=== PATIENT | male | born 1965 | race Caucasian/White ===

== ENCOUNTER 2020-03-21 10:01 | Day surgery (SDC) | payer BC ==
[2020-03-17 14:27] VITALS: BMI 29.4
[~2020-03-21 10:01] MED LIST: LACTATED RINGERS 1,000 ML IV SCH
[2020-03-21 10:32] VITALS: RESP 16; TEMP 98.1
[2020-03-21] MEDS ORDERED: LIDOCAINE 1% (10MG/ML) FOR IV START INTRADERMA ONE (10:46)
[2020-03-21] MEDS ORDERED: MIDAZOLAM 2 MG/2 ML VIAL ONE (11:21)
[2020-03-21] MEDS ORDERED: fentaNYL (PF) 50 MCG/ML 2 ML AMP ONE (11:21)
[2020-03-21] MEDS ORDERED: GLYCOPYRROLATE 0.2 MG/ML 2 ML VIAL ONE (11:21)
[2020-03-21] MEDS ORDERED: PROPOFOL 10 MG/ML 20 ML VIAL IV ONE (11:21)
--- NOTE | 2020-03-21 11:54 | P.PCN ---
Date of Procedure: 03/21/20 Description of Procedure: BRIEF HISTORY: Patient is a 54-year-old male presenting for evaluation colonoscopy for screening for malignant neoplasm of the colon. No prior colonoscopy. No change in bowel habits or blood per rectum. No family history of colon cancer. PROCEDURE PERFORMED: Colonoscopy with polypectomy. PREOPERATIVE DIAGNOSIS: Screening for malignant neoplasm of the colon, no prior colonoscopy. ESTIMATED BLOOD LOSS: Minimal. IV sedation per Anesthesia. PROCEDURE: After informed consent was obtained, the patient, was brought into the endoscopy unit. IV sedation was administered by Anesthesia under continuous monitoring. Digital rectal examination was normal. Initially the Olympus CF-190 flexible video colonoscope was then inserted in the rectum, gradually advanced into the cecum without any difficulty. Careful examination was performed as the scope was gradually being withdrawn. Ileocecal valve and the appendiceal orifice were visualized and appeared normal. Prep was excellent. Mucosa of the cecum, ascending colon, transverse colon, descending colon, sigmoid colon, and rectum appeared normal, with a few scattered diverticula noted in the sigmoid colon. A sessile 4 mm ascending colon polyp was removed cold snare polypectomy. Retroflexion was performed in the rectum and no lesions were seen. The patient tolerated the procedure well. IMPRESSION: Sessile ascending colon polyp removed with cold snare polypectomy. Mild sigmoid diverticulosis. RECOMMENDATIONS: Findings of this examination were discussed with the patient and his family. Okay to resume diet. Okay to resume medications. Await pathology from polypectomy. Recommend repeat colonoscopy in 7 years pending pathology from polypectomy.
[2020-03-21 12:09] VITALS: BP 106/64; PULSE 66
== END 2020-03-21 12:44 | disposition home or self-care (01) ==
LOC: ORWHC2ENDO 10:01
PROVIDERS: ATTEND Internal Medicine
DX: Z12.11 Encounter for screening for malignant neoplasm of colon (principal); K63.5 Polyp of colon; K57.30 Diverticulosis of large intestine without perforation or abscess without bleeding; G47.33 Obstructive sleep apnea (adult) (pediatric); Z90.89 Acquired absence of other organs; Z98.890 Other specified postprocedural states
CPT/HCPCS: 88305; 45385; J2250; J3010; J2704

== ENCOUNTER → 2021-01-18 | Outpatient (CLI) | payer BC ==
--- NOTE | 2021-01-18 22:01 | CONS ---
CONSULTATION DATE OF SERVICE: 01/18/2021 55-year-old gentleman has been evaluated in Sleep Center for possible obstructive sleep apnea-hypopnea syndrome. HISTORY OF PRESENT ILLNESS/SLEEP-WAKE EVALUATION: SLEEP SCHEDULE: Patient usual sleep schedule from 10 p.m. to 6 or 6:30 a.m. on weekdays and until 8 a.m. on weekends. FALLING ASLEEP: No problems with falling asleep, although has TV set in bedroom. DURING SLEEP: He usually sleeps on the side position. According to his , he snores and has episodes of gasping for air. The patient wakes up from sleep 2 times usually without nocturia. No history of hypnagogic hallucinations, sleep paralysis or cataplexy. DURING THE DAY/SLEEP WAKE EVALUATION: In the morning the patient wakes up tired, may feel sleepy during the day. [place] Sleepiness Scale is 7. PAST MEDICAL HISTORY: Positive history of motion sickness. Actinic keratosis. PAST SURGICAL HISTORY: Colonoscopy in February of 2020. Normal results according to patient. Past surgical history of nasal septum deviation repair, tonsillectomy and adenoidectomy. MEDICATIONS: Vitamin E. FAMILY HISTORY: Positive for snoring by his brother. REVIEW OF SYSTEMS: Snoring, awakenings from sleep. PHYSICAL EXAMINATION: GENERAL: gentleman without distress. BP 137/76, HR 67, RR 14, height 5 feet 8- 1/2 inches, weight 200.8 pounds, body mass index 29.9, temperature 97.0, Oxygen saturation at room air 97%. Oropharynx extremely low position of soft palate, Mallampati 4. Neck is 16-3/4 inches in circumference. NECK: Supple, no JVD. Thyroid is not palpable. LUNGS: Clear to percussion and to auscultation. Good air exchange. No wheezing or rhonchi. HEART: S1, S2 regular. No murmurs, gallops, or rubs. ABDOMEN: Soft and nontender. Bowel sounds are present. No organomegaly appreciated. EXTREMITIES: No clubbing or cyanosis. JEWELRY DRILL OPERATOR: Awake, alert, and oriented X3. Cranial nerves 2 to 7 intact. There is no fasciculation or atrophy. noted. No focal deficits observed. IMPRESSION: 1. Snoring, awakenings from sleep, extremely low position of soft palate, Mallampati 4, possible obstructive sleep apnea-hypopnea syndrome. 2. Overweight borderline to obesity, body mass index 29.9. 3. History of motion sickness. PLAN: 1. Home sleep apnea test for evaluation of patient breathing during sleep. 2. If sleep study will be negative and patient will have continued to have symptoms of excessive daytime sleepiness, we may consider to do multiple sleep latency test. Thank you very much for referring this patient for consultation. Sincerely, Luis Douglas MD, PhD, FAASM Diplomat of [employer] Sleep Medicine Board of [place] [employer] Diagnostic Assistant of [facility] [place] MMODL / IJN: [id number] /
== END ==
LOC: SLEEP 16:20
PROVIDERS: ATTEND Internal Medicine
DX: G47.8 Other sleep disorders (principal); R06.83 Snoring; E66.3 Overweight; Z68.29 Body mass index [BMI] 29.0-29.9, adult; Z87.898 Personal history of other specified conditions
CPT/HCPCS: 99211

== ENCOUNTER 2021-07-23 09:41 | Emergency (ER) | payer BC ==
[2021-07-23] MEDS ORDERED: SODIUM CHLORIDE 0.9% 1,000 ML IV STA (10:53)
[2021-07-23] MEDS ORDERED: HYDROmorphone 0.5 MG/0.5 ML SYRINGE IVP STA (10:53)
[2021-07-23] MEDS ORDERED: KETOROLAC 15 MG/ML 1 ML VIAL IVP STA (10:53)
[2021-07-23] MEDS ORDERED: ONDANSETRON 4 MG/2 ML VIAL IVP STA (10:53)
[2021-07-23] MEDS ORDERED: SODIUM CHLORIDE 0.9% 500 ML 500 ML IV STA (10:53)
[2021-07-23 10:55] LABS: Appearance,Urine Cloudy (Clear); Bilirubin,Urine Negative (Negative); Blood,Urine Moderate (Negative); Color,Urine Yellow; Glucose,Urine (UA) Negative (Negative); Hyaline Casts,Urine 1 /lpf (0-2); Ketones,Urine 1+ (Negative); Leukocyte Esterase,Urine Trace (Negative); Mucus,Urine Moderate /hpf; Nitrite,Urine Negative (Negative); Protein,Urine 1+ (Negative); RBC,Urine 82 /hpf (0-5); Specific Gravity,Urine 1.039 (1.001-1.035); Squamous Epithelial Cell,Urine <1 /hpf (0-4); WBC,Urine 2 /hpf (0-5)
--- NOTE | 2021-07-23 11:02 | ED ---
General Adult HPI - General Chief complaint: Back Pain/Injury Stated complaint: Back Pain/Nausea/Diarrhea Time Seen by Provider: 07/23/21 10:46 Source: patient, RN notes reviewed Mode of arrival: ambulatory Limitations: no limitations - History of Present Illness Initial comments: This a 55-year-old male presents emergency Department with chief complaint left flank pain. Patient states the pain started this morning. Patient states nothing makes the pain feel better or worse at this time. Patient states that she's had increased nausea vomiting associated with. Patient denies any history kidney stones. Patient states that he has adysuria or noted hematuria but has urinary stricture. Patient had mild diarrhea patient's had no sick contacts. Patient offers no complaints. - Related Data Home Medications Medication Instructions Recorded Confirmed Cholecalciferol [Vitamin D3 (25 25 mcg PO DAILY 03/17/20 03/21/20 Mcg = 1000 Iu)] [place]-3 Fatty Acids/Fish Oil [Fish 1 each PO DAILY 03/17/20 03/21/20 Oil 1,000 mg Softgel] Vitamin E 400 unit PO DAILY 03/17/20 03/21/20 Previous Rx's Medication Instructions Recorded Ondansetron Odt [Zofran Odt] 4 mg PO Q8HR PRN #10 tab 07/23/21 Allergies Allergy/AdvReac Type Severity Reaction Status Date / Time No Known Allergies Allergy Verified 07/23/21 10:01 Review of Systems ROS Statement: Those systems with pertinent positive or pertinent negative responses have been documented in the HPI. ROS Other: All systems not noted in ROS Statement are negative. Past Medical History Past Medical History: No Reported History History of Any Multi-Drug Resistant Organisms: None Reported Additional Past Surgical History / Comment(s): deviated septum repair Past Anesthesia/Blood Transfusion Reactions: Postoperative Nausea & Vomiting (PONV) Smoking Status: Never smoker General Exam Limitations: no limitations General appearance: alert, in no apparent distress Head exam: Present: atraumatic, normocephalic, normal inspection Eye exam: Present: normal appearance, PERRL, EOMI. Absent: scleral icterus, conjunctival injection, periorbital swelling ENT exam: Present: normal exam, mucous membranes moist Neck exam: Present: normal inspection, full ROM. Absent: tenderness, meningismus, lymphadenopathy Respiratory exam: Present: normal lung sounds bilaterally. Absent: respiratory distress, wheezes, rales, rhonchi, stridor Cardiovascular Exam: Present: normal rhythm, tachycardia, normal heart sounds. Absent: systolic murmur, diastolic murmur, rubs, gallop, clicks Back exam: Present: CVA tenderness (L). Absent: CVA tenderness (R) Neurological exam: Present: alert, oriented X3 Skin exam: Present: warm, dry, intact, normal color. Absent: rash Course Vital Signs 07/23/21 07/23/21 09:57 11:42 Temperature 98.2 F 97.5 F L Pulse Rate 43 L 50 L Respiratory 18 12 Rate Blood Pressure 115/75 126/70 O2 Sat by Pulse 97 99 Oximetry Medical Decision Making - Medical Decision Making upon review of the CT shows evidence of stone, calcification in the bladder. Patient does have hematuria symptoms are consistent with kidney stone. Patient's pain is improved, resolved. Patient discharged in stable condition return parameters discussed. - Lab Data Result diagrams: 07/23/21 11:03 07/23/21 11:03 Lab Results 07/23/21 07/23/21 07/23/21 Range/Units 10:42 11:03 11:03 WBC 8.4 (3.8-10.6) k/uL RBC 5.50 (4.30-5.90) m/uL Hgb 15.7 (13.0-17.5) gm/dL Hct 50.8 (39.0-53.0) % MCV 92.4 (80.0-100.0) fL MCH 28.5 (25.0-35.0) pg MCHC 30.8 L (31.0-37.0) g/dL RDW 12.1 (11.5-15.5) % Plt Count 211 (150-450) k/uL MPV 8.4 Neutrophils % 80 % Lymphocytes % 11 % Monocytes % 5 % Eosinophils % 2 % Basophils % 1 % Neutrophils # 6.7 (1.3-7.7) k/uL Lymphocytes # 1.0 (1.0-4.8) k/uL Monocytes # 0.4 (0-1.0) k/uL Eosinophils # 0.2 (0-0.7) k/uL Basophils # 0.1 (0-0.2) k/uL Sodium 139 (137-145) mmol/L Potassium 4.5 (3.5-5.1) mmol/L Chloride 103 (98-107) mmol/L Carbon Dioxide 28 (22-30) mmol/L Anion Gap 8 mmol/L BUN 22 H (9-20) mg/dL Creatinine 1.31 H (0.66-1.25) mg/dL Est GFR (CKD-EPI)AfAm 71 (>60 ml/min/1.73 sqM) Est GFR (CKD-EPI)NonAf 62 (>60 ml/min/1.73 sqM) Glucose 143 H (74-99) mg/dL Calcium 9.3 (8.4-10.2) mg/dL Total Bilirubin 0.6 (0.2-1.3) mg/dL AST 24 (17-59) U/L ALT 26 (4-49) U/L Alkaline Phosphatase 49 (38-126) U/L Total Protein 7.1 (6.3-8.2) g/dL Albumin 4.6 (3.5-5.0) g/dL Amylase 89 (30-110) U/L Lipase 49 (23-300) U/L Urine Color Yellow Urine Appearance Cloudy (Clear) Urine pH 7.0 (5.0-8.0) Ur Specific [place] 1.039 H (1.001-1.035) Urine Protein 1+ H (Negative) Urine Glucose (UA) Negative (Negative) Urine Ketones 1+ H (Negative) Urine Blood Moderate H (Negative) Urine Nitrite Negative (Negative) Urine Bilirubin Negative (Negative) Urine Urobilinogen 2.0 (<2.0) mg/dL Ur Leukocyte Esterase Trace H (Negative) Urine RBC 82 H (0-5) /hpf Urine WBC 2 (0-5) /hpf Ur Squamous Epith Cells <1 (0-4) /hpf Hyaline Casts 1 (0-2) /lpf Urine Mucus Moderate H (None) /hpf Disposition Clinical Impression: Kidney stone Disposition: HOME SELF-CARE Condition: Stable Instructions (If sedation given, give patient instructions): Kidney Stones (ED) Additional Instructions: Please return to the Emergency Department if symptoms worsen or any other concerns. Prescriptions: Ondansetron Odt [Zofran Odt] 4 mg PO Q8HR PRN #10 tab PRN Reason: Nausea Is patient prescribed a controlled substance at d/c from ED?: No Referrals: Leonard Garcia MD [Primary Care Provider] - 1-2 days Time of Disposition: 12:34
[2021-07-23 11:11] LABS: Basophils # (A) 0.1 k/uL (0-0.2); Basophils % (A) 1 %; Eosinophils # (A) 0.2 k/uL (0-0.7); Eosinophils % (A) 2 %; HCT 50.8 % (39.0-53.0); HGB 15.7 gm/dL (13.0-17.5); Lymphocytes % (A) 11 %; MCH 28.5 pg (25.0-35.0); MCHC 30.8 g/dL (31.0-37.0); MCV 92.4 fL (80.0-100.0); Mean Platelet Volume 8.4; Monocytes # (A) 0.4 k/uL (0-1.0); Monocytes % (A) 5 %; Neutrophils # (A) 6.7 k/uL (1.3-7.7); Neutrophils % (A) 80 %; Platelet Count 211 k/uL (150-450); RDW 12.1 % (11.5-15.5); WBC 8.4 k/uL (3.8-10.6)
[2021-07-23 11:24] LABS: Albumin 4.6 g/dL (3.5-5.0); Calcium 9.3 mg/dL (8.4-10.2); Potassium 4.5 mmol/L (3.5-5.1); Total Bilirubin 0.6 mg/dL (0.2-1.3); Total Protein 7.1 g/dL (6.3-8.2)
--- NOTE | 2021-07-23 11:31 | CT ---
EXAMINATION TYPE: CT abdomen pelvis wo con DATE OF EXAM: 07/23/2021 COMPARISON: None INDICATION: Left lower back pain and stomach pain DLP: 701.2 mGycm, Automated exposure control for dose reduction was used. CONTRAST: 0 mL of Isovue 300. Study performed without Oral Contrast TECHNIQUE: Axial images were obtained from above the diaphragm to the pubic rami in the axial plane a t 5 mm thick sections. Reconstructed images are reviewed on the computer in the coronal plane. FINDINGS: Limited CT sections are obtained the lung bases. The lung bases are clear. CT ABDOMEN: Liver: Normal Spleen: Normal Pancreas: Normal Adrenal glands: The adrenal glands are normal. Gallbladder: Normal Kidneys: No masses are evident. No hydronephrosis is present. No cysts are present. No renal stone s are evident. Aorta: Normal Inferior vena cava: Normal. CT PELVIS: There are some loops of colon within the midabdomen with slightly thickened wall. This extends to the transverse colon into the descending colon. Correlate for mild colitis. Inflammatory changes are not evident adjacent. No dilated colon is evident. Small bowel loops appear unremarkable without contras t. Appendix: Not visualized. No dilated tubular structure or inflammatory changes are evident. Urinary bladder: Normal. Genitourinary structures: Prostate is prominent and contains calcification. Osseous structures: No suspicious lytic or sclerotic lesions. Small subcortical cysts within the ante rior left femoral head. Facet degenerative changes in lumbar spine. IMPRESSIONS: 1. Mild diffuse colonic wall thickening through the transverse and descending colon. Correlate for m ild colitis.
[2021-07-23 11:44] VITALS: BP 126/70; PULSE 50; RESP 12; TEMP 97.5
[2021-07-23] MEDS ORDERED: ACET/COD 300 MG/30 MG STARTER PACK 6 TAB BTL PO STA (12:32)
== END 2021-07-23 12:54 | disposition home or self-care (01) ==
LOC: EC 09:41
DX: N20.0 Calculus of kidney (principal)
CPT/HCPCS: 36415; 93005; 80053; 82150; 83690; 85025; 81001; 74176; 99284; 96374; 96375; 96361; J2405; J1885; J1170

== ENCOUNTER → 2021-12-27 | Outpatient (CLI) | payer BC ==
--- NOTE | 2021-12-27 16:49 | P.PN ---
Subjective DATE: 03/2021 FOLLOW UP VISIT. Patient with obstructive sleep apnea hypopnea syndrome return to sleep center for follow-up visit. Recently patient had sleep study which documented obstructive sleep apnea hypopnea syndrome. Patient was initiated on PAP therapy and today is first visit after treatment was started. I explain results of sleep studies to the patient in details. Patient was able to use PAP equipment every night for the whole night. The patient does not have significant problems with the mask, PAP pressure and humidification. [place] sleepiness scale is 6, which is normal. I checked information from PAP unit. PAP unit pressure 7-15, average 13.8 cm H2O. Usage is 90 % for more then 4 hours, average 6.5 hours per night. Leak is to 5.4 l/m, which is in acceptable range. Apnea Hypopnea Index is 4.7, which is normal, but close to the border. MEDICATIONS:1. Vitamin E During physical exam: GENERAL: A pleasant patient without any distress. VITAL SIGNS: BP 133/76, HR 66, RR 16 , weight 216.0, temperature 98.7, oxygen saturation at room air 97 . HEENT: PERRLA, EOMI.low position of soft palate, Mallapati 4 . NECK: Supple. No JVD. LUNGS: Clear to percussion and to auscultation. Good air exchange. No wheezing or rhonchi. HEART: S1, S2 regular. ABDOMEN: Soft and nontender. Slightly obese EXTREMITIES: No clubbing or cyanosis. CAREGIVER SERVICES HOME: Awake, alert, and oriented x3. No focal deficit. Impressions: 1. Obstructive sleep apnea-hypopnea syndrome. Patient demonstrated great c ompliance with treatment, benefiting from treatment. 2. Mild obesity. Patient increased his weight on about 16 pounds since previous visit. 3. History of motion sickness. Plan: 1. Continue using PAP equipment every night for the whole night. 2. To change air filter at least 1-2 times per month. 3. PAP unit should stay lower then position of the head. 4. Advised patient to remove all remaining water from humidifier canister daily and make it dry after each usage. Refill canister with fresh distilled water before each usage. 5. Sleep hygiene with regular time in bed for at least 8 hours. 6. Precautions related to driving. No driving if feel any sleepiness. 7. I will maintain prescription for PAP supplies including mask, tube, filters. 8. Follow up visit in 6 months or earlier if patient has any problems. 9. Watching and losing weight. Thank you very much for allowing me to participate in the management of your patient. Luis Douglas MD, PhD, FAASM. Diplomat of [place] Board [employer], Sleep Medicine Board by [place] [employer] Medicine Tile Layer Supervisor of [facility] [place]
== END ==
LOC: SLEEP 13:25
PROVIDERS: ATTEND Internal Medicine
DX: G47.33 Obstructive sleep apnea (adult) (pediatric) (principal); Z99.89 Dependence on other enabling machines and devices; E66.8 Other obesity; Z87.19 Personal history of other diseases of the digestive system

== ENCOUNTER → 2022-07-11 | Outpatient (CLI) | payer BC ==
--- NOTE | 2022-07-11 12:06 | P.PN ---
Subjective DATE: 07/11/2022 FOLLOW UP VISIT. Patient with obstructive sleep apnea hypopnea syndrome return to sleep center for follow-up visit. Information from previous visit have been reviewed. Patient is using PAP equipment every night for the whole night, getting PAP supplies in time. The patient does not have significant problems with the mask, PAP unit and humidification. [place] sleepiness scale is[]. I checked information from PAP unit. PAP unit pressure 7-17, average 13.3 cm H2O. Usage is 97% and around 50 % for more then 4 hours, but many nights patient used CPAP only slightly below 4 hours, average 4 hours 6 minutes per night. Leak is 13.3 l/m, which is in acceptable range. Apnea Hypopnea Index is 4.1, which is normal. MEDICATIONS: None During physical exam: GENERAL: A pleasant patient without any distress. VITAL SIGNS: BP 121/82, HR 50, RR 12, weight to 23.2, temperature 97.3, oxygen s aturation at room air 97 % . HEENT: PERRLA, EOMI.low position of soft palate, Mallapati 4 . NECK: Supple. No JVD. LUNGS: Clear to percussion and to auscultation. Good air exchange. No wheezing or rhonchi. HEART: S1, S2 regular. ABDOMEN: Soft and nontender.[] EXTREMITIES: No clubbing or cyanosis. INSTALLER MOLDING AND TRIM: Awake, alert, and oriented x3. No focal deficit. Impressions: 1. Obstructive sleep apnea-hypopnea syndrome. Patient demonstrated borderline compliance with treatment, benefiting from treatment. 2. Mild obesity BMI 33.7, patient increased his weight on around 7 pounds comparing with previous visit. 3. History of motion sickness. Plan: 1. Continue using PAP equipment every night for the whole night. 2. To change air filter at least 1-2 times per month. 3. PAP unit should stay lower then position of the head. 4. Advised patient to remove all remaining water from humidifier canister daily and make it dry after each usage. Refill canister with fresh distilled water before each usage. 5. Sleep hygiene with regular time in bed for at least 8 hours. 6. Precautions related to driving. No driving if feel any sleepiness. 7. I will maintain prescription for PAP supplies including mask, tube, filters. 8. Watching and losing weight. 9. Follow up visit in 6 months or earlier if patient has any problems. Thank you very much for allowing me to participate in the management of your patient. Luis Douglas MD, PhD, FAASM. Diplomat of [place] Board [employer] Medicine, Sleep Medicine Board by [place] [employer] Medicine Drying Oven Tender of [facility] [place]
== END ==
LOC: SLEEP 10:15
PROVIDERS: ATTEND Internal Medicine
DX: G47.33 Obstructive sleep apnea (adult) (pediatric) (principal); E66.9 Obesity, unspecified; Z68.33 Body mass index [BMI] 33.0-33.9, adult; Z99.89 Dependence on other enabling machines and devices
CPT/HCPCS: 99212

== ENCOUNTER → 2023-01-16 | Outpatient (CLI) | payer BC ==
--- NOTE | 2023-01-16 11:49 | P.PN ---
Subjective DATE: 01/16/2023 FOLLOW UP VISIT. Patient with obstructive sleep apnea hypopnea syndrome return to sleep center for follow-up visit. Information from previous visit have been reviewed. Patient is using PAP equipment every night for the whole night, getting PAP supplies in time. The patient does not have significant problems with the mask, PAP unit and humidification. [place] sleepiness scale is 7, which is normal. I checked information from PAP unit and discussed it with patient in details. PAP unit pressure 7-17, average 14.0 cm H2O. Usage is 97% and 63 % for more then 4 hours, average 4.5 hours per night. Leak is 7.8 l/m, which is in acceptable range. Apnea Hypopnea Index is 4.6, which is normal. MEDICATIONS: None During physical exam: GENERAL: A pleasant patient without any distress. VITAL SIGNS: BP 127/84, HR 42, RR 12 , weight 226.4, temperature 97.7, oxygen saturation at room air 99 % . HEENT: PERRLA, EOMI.low position of soft palate, Mallapati 4 . NECK: Supple. No JVD. LUNGS: Clear to percussion and to auscultation. Good air exchange. No wheezing or rhonchi. HEART: S1, S2 regular. ABDOMEN: Soft and nontender. Slightly obese EXTREMITIES: No clubbing or cyanosis. BEER MAKER: Awake, alert, and oriented x3. No focal deficit. Impressions: 1. Obstructive sleep apnea-hypopnea syndrome. Patient demonstrated good compliance with treatment, benefiting from treatment. 2. Bradycardia. 3. History of motion sickness. 4. Mild obesity, BMI 33.8, patient increased his weight on 3 pounds. Plan: 1. Continue using PAP equipment every night for the whole night. 2. To change air filter at least 1-2 times per month. 3. PAP unit should stay lower then position of the head. 4. Advised patient to remove all remaining water from humidifier canister daily and make it dry after each usage. Refill canister with fresh distilled water before each usage. 5. Sleep hygiene with regular time in bed for at least 8 hours. 6. Precautions related to driving. No driving if feel any sleepiness. 7. I will maintain prescription for PAP supplies including mask, tube, filters. 8. Follow up visit in 6 months or earlier if patient has any problems. 9. Watching and losing weight. Thank you very much for allowing me to participate in the management of your patient. Luis Douglas MD, PhD, FAASM. Diplomat of [place] Board of Sleep Medicine, Sleep Medicine Board by [place] Board of Internal Medicine Director Of Therapy Services of [facility] [place]
== END ==
LOC: 3 N SLEEP 11:30
PROVIDERS: ATTEND Internal Medicine
DX: G47.33 Obstructive sleep apnea (adult) (pediatric) (principal); E66.9 Obesity, unspecified; R00.1 Bradycardia, unspecified; Z68.33 Body mass index [BMI] 33.0-33.9, adult; Z87.898 Personal history of other specified conditions; Z99.89 Dependence on other enabling machines and devices
CPT/HCPCS: 99212

== ENCOUNTER → 2023-08-21 | Outpatient (CLI) | payer BC ==
[2023-08-21 10:43] VITALS: BP 120/79; PULSE 57; RESP 16; TEMP 97.7
--- NOTE | 2023-08-21 13:32 | P.PROGSL ---
Subjective DATE: 08/21/2023 FOLLOW UP VISIT. Patient with obstructive sleep apnea hypopnea syndrome return to sleep center for follow-up visit. Information from previous visit have been reviewed. Patient is using PAP equipment every night for the whole night, getting PAP supplies in time. The patient does not have significant problems with the mask, PAP unit and humidification. [employer] sleepiness scale is 7, which is normal. I checked information from PAP unit. PAP unit pressure 10-20, average 13.7 cm H2O. Usage is 100% and 67% for more then 4 hours, average 4.75 hours per night. Leak is 7.5 l/m, which is in acceptable range. Apnea Hypopnea Index is 3.5, which is normal. MEDICATIONS: None at the present time During physical exam: GENERAL: A pleasant patient without any distress. VITAL SIGNS: Please see below, weight 224.0 pounds. HEENT: PERRLA, EOMI.low position of soft palate, Mallapati 4 . NECK: Supple. No JVD. LUNGS: Clear to percussion and to auscultation. Good air exchange. No wheezing or rhonchi. HEART: S1, S2 regular. ABDOMEN: Soft and nontender.[] EXTREMITIES: No clubbing or cyanosis. FABRICATION OPERATOR: Awake, alert, and oriented x3. No focal deficit. Impressions: 1. Obstructive sleep apnea-hypopnea syndrome. Patient demonstrated good compliance with treatment, benefiting from treatment. 2. Mild obesity, patient lost about 2 pounds comparing with previous visit. 3. History of motion sickness. 4. History of bradycardia. Plan: 1. Continue using PAP equipment every night for the whole night. 2. To change air filter at least 1-2 times per month. 3. PAP unit should stay lower then position of the head. 4. Advised patient to remove all remaining water from humidifier canister daily and make it dry after each usage. Refill canister with fresh distilled water before each usage. 5. Sleep hygiene with regular time in bed for at least 8 hours. 6. Precautions related to driving. No driving if feel any sleepiness. 7. I will maintain prescription for PAP supplies including mask, tube, filters. 8. Watching and continue losing weight. 9. Follow up visit in 6 months or earlier if patient has any problems. Thank you very much for allowing me to participate in the management of your patient. Luis Douglas MD, PhD, FAASM. Diplomat of [place] [employer] Sleep Medicine, Sleep Medicine Board by [place] [employer] Internal Medicine Account Development Manager of [facility] [place] Objective - Vital Signs Vital Signs: Vital Signs Temp 97.7 F 08/21/23 10:42 Pulse 57 L 08/21/23 10:42 Resp 16 08/21/23 10:42 BP 120/79 08/21/23 10:42 Pulse Ox 96 08/21/23 10:42 FiO2 Intake & Output 08/20/23 08/21/23 08/21/23 18:59 06:59 18:59 Weight 101.605 kg Home Medications: Home Medications Medication Instructions Recorded Confirmed Type Cholecalciferol [Vitamin D3 (25 25 mcg PO DAILY 03/17/20 03/21/20 History Mcg = 1000 Iu)] [place]-3 Fatty Acids/Fish Oil [Fish 1 each PO DAILY 03/17/20 03/21/20 History Oil 1,000 mg Softgel] Vitamin E 400 unit PO DAILY 03/17/20 03/21/20 History Ondansetron Odt [Zofran Odt] 4 mg PO Q8HR PRN #10 tab 07/23/21 Rx
== END ==
LOC: 3 N SLEEP 10:27
PROVIDERS: ATTEND Internal Medicine
DX: G47.33 Obstructive sleep apnea (adult) (pediatric) (principal); E66.9 Obesity, unspecified; Z99.89 Dependence on other enabling machines and devices; Z87.898 Personal history of other specified conditions; Z86.79 Personal history of other diseases of the circulatory system; Z68.33 Body mass index [BMI] 33.0-33.9, adult
CPT/HCPCS: 99212

== ENCOUNTER → 2023-10-21 | Outpatient (CLI) | payer BC ==
--- NOTE | 2023-11-13 14:28 | US ---
Site ID [facility] Bekah Smith, [place] ID [id number] Age/Gender: 57Y, N/A Order # N/A Procedure US thyroid st tissue head/neck Date 10/21/2023 7:35:00 AM EXAMINATION TYPE: US thyroid st tissue head/neck DATE OF EXAM: 10/23/2023 COMPARISON: None, please note PACS Production downtime occurred during the radiologist interpretation of these images with limited priors/reports. CLINICAL INDICATION: 57 year old with history of right-sided mandibular region swelling. TECHNIQUE: Multiple grayscale and color Doppler ultrasound images of the right neck in the patient's area of concern were obtained. Comparison images of the left neck were performed. FINDINGS/IMPRESSION: No discrete abnormality or lymphadenopathy noted at patient's area of concern. Normal-appearing lymph node inferior to the right submandibular gland with central fatty hilum. 1.7 x 1.1 cm. If there is c ontinued clinical concern, consider further evaluation with CT neck with IV contrast.
== END | disposition home or self-care (01) ==
LOC: RADUSWWP 14:05
PROVIDERS: ATTEND Internal Medicine
DX: R22.1 Localized swelling, mass and lump, neck (principal)
CPT/HCPCS: 76536

== ENCOUNTER → 2024-04-22 | Outpatient (CLI) | payer BC ==
[2024-04-22 10:44] VITALS: BP 113/76; PULSE 58; RESP 16; TEMP 97.6
--- NOTE | 2024-04-22 11:53 | P.PROGSL ---
Subjective DATE: 04/22/2024 FOLLOW UP VISIT. Patient with obstructive sleep apnea hypopnea syndrome return to sleep center for follow-up visit. Information from previous visit have been reviewed. Patient is using PAP equipment every night for the whole night, getting PAP supplies in time. The patient does not have significant problems with the mask, PAP unit and humidification. [place] sleepiness scale is 5, which is normal. I checked information from PAP unit. PAP unit pressure 10-20, average 13.8 cm H2O. Usage is 98% for more then 4 hours, average 7.6 hours per night. Leak is 0 l/m, which is perfect. Apnea Hypopnea Index is 2.6, which is normal. MEDICATIONS: None. During physical exam: GENERAL: A pleasant patient without any distress. VITAL SIGNS: Please see below, weight is 228 lbs. HEENT: PERRLA, EOMI.low position of soft palate, [place] 4 . NECK: Supple. No JVD. LUNGS: Clear to percussion and to auscultation. Good air exchange. No wheezing or rhonchi. HEART: S1, S2 regular. ABDOMEN: Soft and nontender.[] EXTREMITIES: No clubbing or cyanosis. INFANT NANNY: Awake, alert, and oriented x3. No focal deficit. Impressions: 1. Obstructive sleep apnea-hypopnea syndrome. Patient demonstrated great compliance with treatment, benefiting from treatment. 2. Mild obesity, BMI 34.1, patient increased weight on 4 pounds comparing with previous visit. 3. History of motion sickness. 4. History of bradycardia. Plan: 1. Continue using PAP equipment every night for the whole night. 2. Sleep hygiene with regular time in bed for at least 7.5-8 hours 3. PAP unit should stay lower then position of the head. 4. Advised patient to remove all remaining water from humidifier canister daily and make it dry after each usage. Refill canister with fresh distilled water before each usage. 5. Watching weight. 6. Precautions related to driving. No driving if feel any sleepiness. 7. I will maintain prescription for PAP supplies including mask, tube, filters. 8. Follow up visit in 8 months or earlier if patient has any problems. Thank you very much for allowing me to participate in the management of your patient. Luis Douglas MD, PhD, FAASM. Diplomat of [place] [employer], Sleep Medicine Board by [place] [employer] [facility] [place] Objective - Vital Signs Vital Signs: Vital Signs Temp 97.6 F 04/22/24 10:44 Pulse 58 L 04/22/24 10:44 Resp 16 04/22/24 10:44 BP 113/76 04/22/24 10:44 Pulse Ox 97 04/22/24 10:44 FiO2 Intake & Output 04/21/24 04/22/24 04/22/24 18:59 06:59 18:59 Weight 103.419 kg Home Medications: Home Medications Medication Instructions Recorded Confirmed Type Cholecalciferol [Vitamin D3 (25 25 mcg PO DAILY 03/17/20 03/21/20 History Mcg = 1000 Iu)] [place]-3 Fatty Acids/Fish Oil [Fish 1 each PO DAILY 03/17/20 03/21/20 History Oil 1,000 mg Softgel] Vitamin E 400 unit PO DAILY 03/17/20 03/21/20 History Ondansetron Odt [Zofran Odt] 4 mg PO Q8HR PRN #10 tab 07/23/21 Rx
== END ==
LOC: 3 N SLEEP 10:31
PROVIDERS: ATTEND Internal Medicine
DX: G47.33 Obstructive sleep apnea (adult) (pediatric) (principal); E66.9 Obesity, unspecified; Z68.34 Body mass index [BMI] 34.0-34.9, adult; Z86.79 Personal history of other diseases of the circulatory system
CPT/HCPCS: 99212